=== PATIENT | female | born 1960 | race Caucasian/White ===

== ENCOUNTER 2016-09-11 15:20 | Emergency (ER) | payer MEDICAID ==
[~2016-09-11] VITALS: Ht 162.6 cm; Wt 87.0 kg
[~2016-09-11 15:20] MED LIST: AMLO5 PO; BENT20TA PO; CYCL1TAB29 PO; OMEP20TA PO; POTA10TA8 PO
[2016-09-11 15:48] VITALS: BP 132/86; PULSE 86; RESP 18; TEMP 98; O2SAT 98
[2016-09-11 16:56] VITALS: BP 139/93; PULSE 80; RESP 18; O2SAT 97
[2016-09-11] MEDS ORDERED: ZOLO25TA PO (17:06)
[2016-09-11] MEDS ORDERED: NEUR100C PO (17:06)
[2016-09-11] MEDS ORDERED: PERC10TA27 PO (17:06)
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
[2016-09-11] MEDS ORDERED: RESP: ALBUTEROL 2.5 MG/IPRATROPIUM 0.5 MG NEB (SCH) NEB ONE (17:15)
--- NOTE | 2016-09-11 17:41 | RADHPO ---
EXAM DATE/TIME: 09/11/2016 17:25 [facility] COMPARISON: CHEST PA & LAT, May 28, 2014, 23:41. INDICATIONS : Shortness of breath. MEDICAL HISTORY : Hypertension. Gastroesophageal reflux disease. Renal calculi. SURGICAL HISTORY : Cholecystectomy. ENCOUNTER: Initial ACUITY: 2 months PAIN SCORE: 0/10 LOCATION: Bilateral chest FINDINGS: PA and lateral views of the chest demonstrate the lungs to be symmetrically aerated without evidence of mass, infiltrate or effusion. The cardiomediastinal contours are unremarkable. Osseous structure s are intact. CONCLUSION: No acute disease. No significant change has occurred. Harjit Jessica MD on September 11, 2016 at 17:38 Board Certified Radiologist. This report was verified electronically.
[2016-09-11 17:47] LABS: AUTOMATED NEUTROPHIL # 6.5 TH/MM3 (1.8-7.7); BASOPHIL # 0.1 TH/MM3 (0-0.2); BASOPHIL % 1.2 % (0.0-2.0); EOSINOPHIL # 0.2 TH/MM3 (0-0.4); EOSINOPHIL % 1.8 % (0.0-4.0); HEMATOCRIT 42.4 % (35.0-46.0); LYMPH % 21.7 % (9.0-44.0); MEAN CELL VOLUME 94.9 FL (80.0-100.0); MEAN CORPUSCULAR HGB CONC 34.8 % (32.0-36.0); MONO % 5.8 % (0.0-8.0); NEUT % 69.5 % (16.0-70.0); PLATELET COUNT 325 TH/MM3 (150-450); RED BLOOD COUNT 4.46 MIL/MM3 (4.00-5.30); RED CELL DISTRIBUTION WIDTH 12.7 % (11.6-17.2); WHITE BLOOD COUNT 9.3 TH/MM3 (4.0-11.0)
[2016-09-11 17:52] LABS: HEMO FLAGS AUTO DIFF
[2016-09-11 17:54] LABS: BICARBONATE 27.8 MEQ/L (21.0-32.0)
[2016-09-11 18:36] LABS: PLATELET ESTIMATE SMEAR NORMAL (NORMAL); PLATELET MORPHOLOGY NORMAL (NORMAL); SCAN/DIFF AUTO DIFF CONFIRMED
[2016-09-11] MEDS ORDERED: MEDR4PAK PO (18:53)
[2016-09-11] MEDS ORDERED: VENTAER INH (18:53)
[2016-09-11 19:00] VITALS: BP 138/78
[2016-09-11] MEDS ORDERED: predniSONE 20 MG TAB PO ONE (19:00)
--- NOTE | 2016-09-12 13:45 | EKG ---
Date Performed: 09/11/2016 Time Performed: 17:36:52 PTAGE: 56 years EKG: Sinus rhythm Since previous tracing, no significant change noted Normal ECG PREVIOUS TRACING : 07/06/2013 10.40 DOCTOR: Kari Godwin Interpretating Date/Time 09/12/2016 13:45:00
== END 2016-09-11 19:08 | disposition home or self-care (01) ==
LOC: PHED 15:20
DX: J98.01 Acute bronchospasm (principal); I10 Essential (primary) hypertension; Z72.0 Tobacco use; Z87.39 Personal history of other diseases of the musculoskeletal system and connective tissue; Z86.59 Personal history of other mental and behavioral disorders; Z85.828 Personal history of other malignant neoplasm of skin; Z87.19 Personal history of other diseases of the digestive system; Z86.79 Personal history of other diseases of the circulatory system; Z87.442 Personal history of urinary calculi
CPT/HCPCS: 71020; 80048; 83880; 85025; 93005; 94664; 99284; J7512

== ENCOUNTER 2016-12-04 12:37 | Emergency (ER) | payer MEDICAID ==
[~2016-12-04] VITALS: Ht 162.6 cm; Wt 85.7 kg
[~2016-12-04 12:37] MED LIST changes: -BENT20TA PO; -CYCL1TAB29 PO; +MEDR4PAK PO; +NEUR100C PO; -OMEP20TA PO; +PERC10TA27 PO; -POTA10TA8 PO; +VENTAER INH; +ZOLO25TA PO
[2016-12-04 12:40] VITALS: BP 136/100; PULSE 82; RESP 16; TEMP 97.6; O2SAT 98
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
[2016-12-04] MEDS ORDERED: AMLO5 PO (12:58)
[2016-12-04] MEDS ORDERED: CLIN1CAP5 PO (12:58)
[2016-12-04] MEDS ORDERED: BACT800T5 PO (12:58)
== END 2016-12-04 13:16 | disposition home or self-care (01) ==
LOC: PHED 12:37
DX: L03.114 Cellulitis of left upper limb (principal); I10 Essential (primary) hypertension; Z72.0 Tobacco use; Z87.39 Personal history of other diseases of the musculoskeletal system and connective tissue; Z86.59 Personal history of other mental and behavioral disorders; Z85.828 Personal history of other malignant neoplasm of skin; Z86.79 Personal history of other diseases of the circulatory system; Z87.19 Personal history of other diseases of the digestive system; Z87.442 Personal history of urinary calculi
CPT/HCPCS: 99284

== ENCOUNTER 2017-01-07 12:48 | Emergency (ER) | payer MEDICAID ==
[~2017-01-07] VITALS: Ht 162.6 cm; Wt 84.0 kg
[~2017-01-07 12:48] MED LIST changes: +BACT800T5 PO; +CLIN1CAP5 PO; -MEDR4PAK PO; -PERC10TA27 PO; -ZOLO25TA PO
[2017-01-07 13:01] VITALS: BP 151/86; PULSE 92; RESP 20; TEMP 98.3
[2017-01-07] MEDS ORDERED: KETOROLAC TROMETHAMINE 30 MG/ML (IVP) VIAL IVP ONE (13:15)
[2017-01-07] MEDS ORDERED: ONDANSETRON HCL 4 MG/2 ML VIAL IVP ONE (13:15)
[2017-01-07] MEDS ORDERED: HYDROmorphone HCL PF 1 MG/ML VIAL IVS ONE (13:15)
[2017-01-07] MEDS ORDERED: SODIUM CHLORIDE 0.9% FLUSH 10 ML FLUSH IVF PRN (13:15)
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
--- NOTE | 2017-01-07 14:01 | RADRPT ---
EXAM DATE/TIME: 01/07/2017 13:40 [facility] COMPARISON: CT ABDOMEN & PELVIS W CONTRAST, March 20, 2016, 18:08. INDICATIONS : Left flank pain. ORAL CONTRAST: No oral contrast ingested. RADIATION DOSE: 20.40 CTDIvol (mGy) MEDICAL HISTORY : Hypertension. SURGICAL HISTORY : Tubal ligation. Cholecystectomy. ENCOUNTER: Initial ACUITY: 2 days PAIN SCALE: 10/10 LOCATION: Left flank TECHNIQUE: Volumetric scanning of the abdomen and pelvis was performed. Using automated exposure control and ad justment of the mA and/or kV according to patient size, radiation dose was kept as low as reasonably achievable to obtain optimal diagnostic quality images. DICOM format image data is available electro nically for review and comparison. FINDINGS: CT Abdomen: The liver, spleen, pancreas, right kidney, adrenals are unremarkable. There is no evidenc e for any stones in the kidneys or the course of the ureters on either side. There is no hydronephros is.There is no evidence for any appreciable pathological adenopathy, free fluid, or bowel obstruction . There is evidence for prior cholecystectomy. The common bile duct is dilated measures 2.3 cm in siz e due to post cholecystectomy changes not significantly changed. There are multiple cysts in the left kidney the largest measures 4.[address] pelvis: There is no evidence for mass, abscess formation, or any significant adenopathy within the pelvis. CONCLUSION: Stable left renal cysts and post cholecystectomy changes. Samantha Ritchie MD on January 07, 2017 at 13:49 Board Certified Radiologist. This report was verified electronically.
[2017-01-07 15:05] LABS: BLOOD, URINE SMALL (NEG); GLUCOSE,URINE NEG (NEG); KETONE, URINE NEG (NEG); NITRITE,URINE NEG (NEG)
[2017-01-07 15:13] LABS: URINE COLOR YELLOW (YELLW/STRAW)
[2017-01-07 15:15] LABS: BACTERIA, URINE RARE /hpf; COMMENT (UR) CULT NOT INDICATED; CULTURE IF INDICATED CULT NOT INDICATED; RBC, URINE 0-3 /hpf (0-3); SQUAMOUS EPITHELIAL CELL URINE 0-5 /hpf (0-5); WBC, URINE 0-2 /hpf (0-5)
[2017-01-07] MEDS ORDERED: ULTR50TA5 PO (15:26)
[2017-01-07] MEDS ORDERED: CYCL1TAB29 PO (15:26)
== END 2017-01-07 15:37 | disposition home or self-care (01) ==
LOC: PHED 12:48
DX: R10.32 Left lower quadrant pain (principal); I10 Essential (primary) hypertension; Z87.442 Personal history of urinary calculi; F17.210 Nicotine dependence, cigarettes, uncomplicated
CPT/HCPCS: 74176; 81001; 96374; 96375; 99285; J1170; J1885; J2405

== ENCOUNTER 2017-02-06 02:39 | Emergency (ER) | payer MEDICAID ==
[~2017-02-06] VITALS: Ht 162.6 cm; Wt 84.1 kg
[~2017-02-06 02:39] MED LIST changes: -BACT800T5 PO; -CLIN1CAP5 PO; +CYCL1TAB29 PO; -NEUR100C PO; +ULTR50TA5 PO; -VENTAER INH
[2017-02-06 02:50] VITALS: BP 150/89; PULSE 92; RESP 18; TEMP 98.2; O2SAT 97
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
[2017-02-06] MEDS ORDERED: PERC5TAB12 PO (03:27)
[2017-02-06] MEDS ORDERED: oxyCODONE/ACETAMINOPHEN 7.5 MG/325 MG TAB PO ONE (03:30)
--- NOTE | 2017-02-06 03:31 | RADRPT ---
EXAM DATE/TIME: 02/06/2017 03:01 [facility] COMPARISON: No previous studies available for comparison. INDICATIONS : Right foot, fourth digit pain. MEDICAL HISTORY : Hypertension. SURGICAL HISTORY : Tubal ligation. Cholecystectomy ENCOUNTER: Initial ACUITY: 1 day PAIN SCORE: 10/10 LOCATION: Right foot FINDINGS: Multiple images of the right fourth toe reveal acute fracture multiple proximal phalanx. The fracture is obliquely oriented relative to the long axis of the bone. 20 of angulation with apex medially. CONCLUSION: Acute proximal phalangeal fracture as detailed above. Duke Tee Jr., MD on February 06, 2017 at 3:28 Board Certified Radiologist. This report was verified electronically.
--- NOTE | 2017-02-06 03:47 | RADRPT ---
EXAM DATE/TIME: 02/06/2017 03:33 [place] COMPARISON: TOE RIGHT 4TH DIGIT(MIN 2VWS), February 06, 2017, 3:01. INDICATIONS : Post reduction right foot, fourth digit. MEDICAL HISTORY : Hypertension. SURGICAL HISTORY : Tubal ligation. Cholecystectomy ENCOUNTER: Subsequent ACUITY: 1 day PAIN SCORE: 3/10 LOCATION: Right foot FINDINGS: Single view of the right foot shows reduction of the angulation seen at the proximal phalangeal fract ure. CONCLUSION: Reduced angulation at the proximal phalangeal fracture of the fourth toe. Duke Tee Jr., MD on February 06, 2017 at 3:45 Board Certified Radiologist. This report was verified electronically.
== END 2017-02-06 03:39 | disposition home or self-care (01) ==
LOC: PHED 02:39
DX: S92.511A Displaced fracture of proximal phalanx of right lesser toe(s), initial encounter for closed fracture (principal); I10 Essential (primary) hypertension; F17.210 Nicotine dependence, cigarettes, uncomplicated
CPT/HCPCS: 28660; 73620; 73660; 99284; L3260

== ENCOUNTER → 2017-09-24 | Outpatient (CLI) | payer MEDICAID ==
[~2017-09-24] MED LIST changes: -CYCL1TAB29 PO; +PERC5TAB12 PO; -ULTR50TA5 PO
--- NOTE | 2017-09-24 18:13 | EKG ---
Date Performed: 09/24/2017 Time Performed: 10:39:34 PTAGE: 57 years EKG: Sinus rhythm . Since previous tracing, no significant change noted Normal ECG PREVIOUS TRACING : 09/11/2016 17.36 DOCTOR: Georgie Lechuga Interpretating Date/Time 09/24/2017 18:12:08
== END ==
LOC: HCAV 10:25
PROVIDERS: ATTEND General Practice
DX: Z01.810 Encounter for preprocedural cardiovascular examination (principal)
CPT/HCPCS: 93005